=== PATIENT | female | born 1965 | race Caucasian/White ===

== ENCOUNTER 2019-08-29 16:32 | Inpatient (IN) ==
[2019-08-29 18:19] LABS: Basophils % 0.4 % (0.0-0.8); Eosinophils # 0.1 10*3/uL (0.0-0.87); Eosinophils % 1.7 % (0.00-10.9); Hematocrit 36.2 VOL% (35.7-47.0); Hemoglobin 11.9 GM/DL (12.0-16.0); Immature Granulocytes Absolute 0.07 #; Lymphocytes # 1.4 10*3/uL (1.4-4.0); Lymphocytes % 19.2 % (21.3-54.2); Mean Corpuscular HGB Conc 32.9 GM/DL (32-36); Mean Corpuscular Volume 87.7 FL (87-102); Mean Platelet Volume 9.1 FL (9.6-12.0); Monocytes % 8.6 % (1.7-12.7); Neutrophils % 69.1 % (38.7-73.9); Red Blood Count 4.13 MC/CUMM (3.8-5.5); Red Cell Distribution Width 15.1 % (9.3-17.3); White Blood Count 7.2 T/CUMM (4-12)
[2019-08-29 18:22] LABS: Platelet Count 65 T/CUMM (130-400)
[2019-08-29] MEDS ORDERED: ALBUTEROL 2.5 MG/3 ML NEB RESP TX STA (18:22)
[2019-08-29 18:28] LABS: INR 1.3
[2019-08-29 18:40] LABS: Albumin 2.8 G/DL (3.4-5.0); Bilirubin,Total 1.8 MG/DL (0.2-1.0); Calcium 8.3 MG/DL (8.5-10.1); Osmolality,Calculated 288.6 MOS/KG (273-304)
[2019-08-29] MEDS ORDERED: methylPREDNISolone SOD SUC 40 MG/1 ML VIAL IV STA (18:44)
[2019-08-29 19:16] LABS: Platelet Estimate Decreased
[2019-08-29] MEDS ORDERED: MAGNESIUM SULF RIDER 2 GM in PREMIX 1 EACH IV PRN (23:31)
[2019-08-29] MEDS ORDERED: GLUCAGON 1 MG VIAL IM PRN (23:31)
[2019-08-29] MEDS ORDERED: DEXTROSE 50% 25 GM/50 ML VIAL IV PRN (23:31)
[2019-08-29] MEDS ORDERED: diphenhydrAMINE CAP 25 MG CAPSULE PO PRN (23:31)
[2019-08-29] MEDS ORDERED: ONDANSETRON 4 MG/2 ML VIAL IV PRN (23:31)
[2019-08-29] MEDS ORDERED: MAGNESIUM SULF RIDER 4 GM in PREMIX 1 EACH IV PRN (23:31)
[2019-08-30] MEDS: MONTELUKAST 10 MG TABLET PO SCH ×2 (00:05→20:54)
[2019-08-30] MEDS: POTASSIUM CHLORIDE 20 MEQ TABLET PO PRN ×4 (00:05→05:46)
[2019-08-30] MEDS: BUDESONIDE/FORMOTEROL 160-4.5 INHALER 6 GM INH SCH ×3 (00:05→20:59)
[2019-08-30] MEDS: GABAPENTIN 400 MG CAPSULE PO SCH ×2 (00:05→20:54)
[2019-08-30] MEDS: INSULIN GLARGINE 100 UNIT/ML SUBCUT SCH ×2 (00:23→20:51)
[2019-08-30] MEDS: ALBUTEROL/IPRATROPIUM 3 ML NEB RESP TX PRN (00:32)
[2019-08-30 05:39] LABS: Basophils % 0.2 % (0.0-0.8); Hematocrit 34.4 VOL% (35.7-47.0); Hemoglobin 11.3 GM/DL (12.0-16.0); Immature Granulocytes Absolute 0.04 #; Lymphocytes # 0.4 10*3/uL (1.4-4.0); Lymphocytes % 10.8 % (21.3-54.2); Mean Corpuscular HGB Conc 32.8 GM/DL (32-36); Mean Corpuscular Volume 87.5 FL (87-102); Mean Platelet Volume 9.6 FL (9.6-12.0); Monocytes % 3.4 % (1.7-12.7); Neutrophils % 84.6 % (38.7-73.9); Red Blood Count 3.93 MC/CUMM (3.8-5.5); Red Cell Distribution Width 14.9 % (9.3-17.3); White Blood Count 4.1 T/CUMM (4-12)
[2019-08-30 05:40] LABS: Platelet Count 44 T/CUMM (130-400)
[2019-08-30] MEDS ORDERED: LEVOTHYROXINE 175 MCG TABLET PO SCH (06:00)
[2019-08-30 06:06] LABS: Platelet Estimate Decreased
[2019-08-30 06:10] LABS: Albumin 2.3 G/DL (3.4-5.0); Bilirubin,Total 1.4 MG/DL (0.2-1.0); Osmolality,Calculated 288.3 MOS/KG (273-304); Thyroid Stimulating Hormone 0.022 uIU/ml (0.358-3.74); Total Protein 5.7 G/DL (6.4-8.3)
[2019-08-30 06:52] LABS: Hepatitis B Core IgM Quant 0.11 Index; Hepatitis B Surface Ag Quant < 0.10 Index; Hepatitis B Surface Ag Result Negative (Negative); Hepatitis C Virus Ab Quant 0.06 Index; Hepatitis C Virus Ab Result Negative (Negative)
[2019-08-30] MEDS ORDERED: INSULIN REGULAR 100 UNIT/ML SUBCUT SCH (07:30)
[2019-08-30] MEDS ORDERED: FUROSEMIDE 40 MG TABLET PO SCH (08:00)
[2019-08-30] MEDS ORDERED: PANTOPRAZOLE 40 MG TABLET PO SCH (09:00)
[2019-08-30] MEDS: INSULIN LISPRO 100 UNIT/ML SUBCUT SCH ×8 (09:32→20:51)
[2019-08-30] MEDS: MULTIVITAMIN (CENTRUM) TABLET PO SCH (10:09)
[2019-08-30] MEDS: METOPROLOL SUCCINATE XL 25 MG TABLET PO SCH (10:09)
[2019-08-30] MEDS: POTASSIUM CHLORIDE 20 MEQ TABLET PO SCH (10:09)
[2019-08-30] MEDS ORDERED: RANITIDINE 150 MG TABLET PO PRN (10:21)
[2019-08-30] MEDS: SPIRONOLACTONE 25 MG TABLET PO SCH (12:20)
[2019-08-30] MEDS: MULTIVITAMIN (BEROCCA) TABLET PO SCH (12:20)
[2019-08-30] MEDS: ceFAZolin 1,000 MG in SYRINGE 1 EACH IV SCH ×2 (12:21→20:54)
[2019-08-30] MEDS ORDERED: metOLazone 5 MG TABLET PO SCH (13:00)
[2019-08-30] MEDS ORDERED: FUROSEMIDE 40 MG/4 ML VIAL IV SCH (16:00)
[2019-08-30] MEDS: FUROSEMIDE 40 MG/4 ML VIAL IV SCH (16:16)
[2019-08-30] MEDS: POLYETHYLENE GLYCOL POWDER 17 GM PACK PO SCH (20:54)
[2019-08-30] MEDS: DOCUSATE SODIUM 100 MG CAPSULE PO SCH (20:54)
[2019-08-31] MEDS: ceFAZolin 1,000 MG in SYRINGE 1 EACH IV SCH ×3 (06:00→21:06)
[2019-08-31 06:12] LABS: Basophils % 0.2 % (0.0-0.8); Eosinophils # 0.1 10*3/uL (0.0-0.87); Eosinophils % 1.2 % (0.00-10.9); Hematocrit 30.5 VOL% (35.7-47.0); Hemoglobin 10.1 GM/DL (12.0-16.0); Immature Granulocytes % 0.6 %; Immature Granulocytes Absolute 0.03 #; Lymphocytes % 20.2 % (21.3-54.2); Mean Corpuscular HGB Conc 33.1 GM/DL (32-36); Mean Corpuscular Volume 87.1 FL (87-102); Mean Platelet Volume 9.5 FL (9.6-12.0); Monocytes % 7.4 % (1.7-12.7); Neutrophils % 70.4 % (38.7-73.9); Platelet Count 65 T/CUMM (130-400); Red Cell Distribution Width 15.2 % (9.3-17.3)
[2019-08-31 06:28] LABS: Eosinophils 2 % (0-10); Hypochromasia 1+; Lymphocytes 15 % (20-55); Ovalocytes Slight; Platelet Estimate Decreased; Segmented Neutrophils 76 % (50-85); Total Cells Counted 100
[2019-08-31 06:38] LABS: Albumin 2.4 G/DL (3.4-5.0); Bilirubin,Total 1.1 MG/DL (0.2-1.0); Calcium 8.4 MG/DL (8.5-10.1); Folate 13.5 NG/ML (5.4-24.0); Osmolality,Calculated 290.6 MOS/KG (273-304); Total Protein 5.4 G/DL (6.4-8.3); Vitamin B12 889 PG/ML (211-911)
[2019-08-31 06:40] LABS: Ferritin 135.7 ng/ml (8-252)
[2019-08-31 08:08] LABS: Risk Ratio 2.67
[2019-08-31 08:15] LABS: Sedimentation Rate-Westergren 17 MM/HR (0-30)
[2019-08-31] MEDS: INSULIN LISPRO 100 UNIT/ML SUBCUT SCH ×7 (09:54→21:10)
[2019-08-31 10:02] LABS: Hemoglobin A1 (Alkaline) 97.3 % (96.5-98.5); Hemoglobin A2 (Alkaline) 2.7 % (1.5-3.5)
[2019-08-31] MEDS: FUROSEMIDE 40 MG/4 ML VIAL IV SCH ×2 (10:02→16:38)
[2019-08-31] MEDS: LEVOTHYROXINE 150 MCG TABLET PO SCH (10:02)
[2019-08-31] MEDS: BUDESONIDE/FORMOTEROL 160-4.5 INHALER 6 GM INH SCH ×2 (10:07→21:57)
[2019-08-31] MEDS: SPIRONOLACTONE 25 MG TABLET PO SCH (10:39)
[2019-08-31] MEDS: MULTIVITAMIN (BEROCCA) TABLET PO SCH (10:39)
[2019-08-31] MEDS: CHOLECALCIFEROL 1,000 UNIT TABLET PO SCH (10:40)
[2019-08-31] MEDS: METOPROLOL SUCCINATE XL 25 MG TABLET PO SCH (10:40)
[2019-08-31] MEDS: MULTIVITAMIN (CENTRUM) TABLET PO SCH (10:40)
[2019-08-31] MEDS: DOCUSATE SODIUM 100 MG CAPSULE PO SCH ×2 (10:41→21:08)
[2019-08-31] MEDS: POTASSIUM CHLORIDE 20 MEQ TABLET PO SCH (10:41)
[2019-08-31] MEDS: POLYETHYLENE GLYCOL POWDER 17 GM PACK PO SCH ×2 (10:42→21:10)
[2019-08-31] MEDS ORDERED: POTASSIUM CHLORIDE 20 MEQ TABLET PO ONE (11:00)
[2019-08-31] MEDS: BACITRACIN OINT 0.9 GM PACK TOP SCH (13:55)
[2019-08-31] MEDS: POTASSIUM CHLORIDE 20 MEQ TABLET PO PRN ×3 (18:21→23:36)
[2019-08-31] MEDS: ALBUTEROL/IPRATROPIUM 3 ML NEB RESP TX PRN (18:31)
[2019-08-31] MEDS: GABAPENTIN 400 MG CAPSULE PO SCH (21:08)
[2019-08-31] MEDS: SPIRONOLACTONE 50 MG TABLET PO SCH (21:08)
[2019-08-31] MEDS: MONTELUKAST 10 MG TABLET PO SCH (21:08)
[2019-08-31] MEDS: INSULIN GLARGINE 100 UNIT/ML SUBCUT SCH (21:09)
[2019-09-01] MEDS: ceFAZolin 1,000 MG in SYRINGE 1 EACH IV SCH ×2 (05:05→12:58)
[2019-09-01 05:58] LABS: Albumin 2.5 G/DL (3.4-5.0); Bilirubin,Total 1.1 MG/DL (0.2-1.0); Calcium 8.4 MG/DL (8.5-10.1); Osmolality,Calculated 286.8 MOS/KG (273-304); Total Protein 5.5 G/DL (6.4-8.3)
[2019-09-01] MEDS: LEVOTHYROXINE 150 MCG TABLET PO SCH (06:00)
[2019-09-01] MEDS: INSULIN LISPRO 100 UNIT/ML SUBCUT SCH ×4 (08:36→12:56)
[2019-09-01] MEDS ORDERED: GLUCOSAM CHON MSM1 C MANG BOSW PO SCH (09:00)
[2019-09-01] MEDS ORDERED: CHOLECALCIFEROL 1,000 UNIT TABLET PO SCH (09:00)
[2019-09-01] MEDS ORDERED: ASCORBIC ACID 500 MG TABLET PO SCH (09:00)
[2019-09-01] MEDS: DOCUSATE SODIUM 100 MG CAPSULE PO SCH (09:27)
[2019-09-01] MEDS: CHOLECALCIFEROL 1,000 UNIT TABLET PO SCH (09:27)
[2019-09-01] MEDS: MULTIVITAMIN (BEROCCA) TABLET PO SCH (09:27)
[2019-09-01] MEDS: MULTIVITAMIN (CENTRUM) TABLET PO SCH (09:27)
[2019-09-01] MEDS: METOPROLOL SUCCINATE XL 25 MG TABLET PO SCH (09:27)
[2019-09-01] MEDS: SPIRONOLACTONE 50 MG TABLET PO SCH (09:27)
[2019-09-01] MEDS: POLYETHYLENE GLYCOL POWDER 17 GM PACK PO SCH (09:28)
[2019-09-01] MEDS: BACITRACIN OINT 0.9 GM PACK TOP SCH (09:29)
[2019-09-01] MEDS: FUROSEMIDE 40 MG/4 ML VIAL IV SCH (09:29)
[2019-09-01] MEDS: BUDESONIDE/FORMOTEROL 160-4.5 INHALER 6 GM INH SCH (09:33)
[2019-09-01 11:10] VITALS: BP 127/58
[2019-09-01 13:43] LABS: Smooth Muscle Antibody Negative (Negative)
[2019-09-02 07:41] LABS: Mitochondrial Antibody (M2) <0.1 U
== END 2019-09-01 13:02 | disposition home or self-care (01) | DRG 433 ==
LOC: N.ED 16:32 → N.EDINP 16:32 → N.2E 22:24 → SUATTDRO 08-30 11:03
PROVIDERS: ADMIT Hospitalist

== ENCOUNTER 2020-04-17 10:00 | Observation (INO) ==
[2020-04-17 10:59] LABS: Basophils % 0.8 % (0.0-0.8); Eosinophils # 0.1 10*3/uL (0.0-0.87); Eosinophils % 2.5 % (0.00-10.9); Hematocrit 42.5 VOL% (35.7-47.0); Hemoglobin 14.2 GM/DL (12.0-16.0); Immature Granulocytes % 0.8 %; Immature Granulocytes Absolute 0.03 #; Lymphocytes % 25.4 % (21.3-54.2); Mean Corpuscular HGB Conc 33.4 GM/DL (32-36); Mean Corpuscular Volume 85.5 FL (87-102); Mean Platelet Volume 9.4 FL (9.6-12.0); Monocytes % 9.3 % (1.7-12.7); Neutrophils % 61.2 % (38.7-73.9); Red Blood Count 4.97 MC/CUMM (3.8-5.5); Red Cell Distribution Width 16.3 % (9.3-17.3)
[2020-04-17 11:00] LABS: Platelet Count 78 T/CUMM (130-400)
[2020-04-17 11:14] LABS: Apearance,Urine CLEAR (Clear); Bilirubin,Urine Negative (Negative); Blood, Urine Negative (Negative); Glucose,Urine (UA) >=500 mg/dL (Negative); Hyaline Casts,Urine 4 /LPF (0-3); Ketones,Urine Negative (Negative); Nitrite,Urine Negative (Negative); Protein,Urine Negative; RBC,Urine 1 /HPF (0-4); Urine Color Yellow (Yellow); Urine Specific Gravity 1.022 (1.001-1.035); Urine Urobilinogen < 2.0 EU/DL (0.2-1.0)
[2020-04-17 11:18] LABS: Albumin 3.4 G/DL (3.4-5.0); Bilirubin,Total 2.8 MG/DL (0.2-1.0); Calcium 9.1 MG/DL (8.5-10.1); Osmolality,Calculated 272.8 MOS/KG (273-304); Total Protein 8.4 G/DL (6.4-8.3)
[2020-04-17 11:19] LABS: Barbiturates Screen,Urine Negative (Negative); Benzodiazepines Screen,Urine Negative (Negative); Cannabinoid Screen,Urine Negative (Negative); Opiate Screen,Urine Positive (Negative); Phencyclidine Screen,Urine Negative (Negative)
[2020-04-17] MEDS ORDERED: NALOXONE 0.4 MG/ML VIAL IV STA (11:22)
[2020-04-17 11:23] LABS: Hypochromasia 1+
[2020-04-17 11:24] LABS: Microcytosis 1+; Ovalocytes Slight; Platelet Estimate Decreased
[2020-04-17] MEDS ORDERED: LACTULOSE 20 GM/30 ML UDCUP PO STA (11:24)
[2020-04-17] MEDS ORDERED: LACTULOSE 320 GM/480 ML BOTTLE RECTAL ONE (11:56)
[2020-04-17] MEDS ORDERED: ALBUTEROL 2.5 MG/3 ML NEB RESP TX PRN (11:59)
[2020-04-17] MEDS ORDERED: ONDANSETRON 4 MG/2 ML VIAL IV PRN (12:49)
[2020-04-17] MEDS ORDERED: GLUCAGON 1 MG VIAL IM PRN (12:49)
[2020-04-17] MEDS ORDERED: DEXTROSE 10% 250 ML BAG IV PRN (12:49)
[2020-04-17] MEDS ORDERED: hydrALAZINE 20 MG/1 ML VIAL IV PRN (12:49)
[2020-04-17] MEDS: LACTULOSE 20 GM/30 ML UDCUP PO SCH ×2 (16:15→20:42)
[2020-04-17] MEDS: ALBUTEROL/IPRATROPIUM 3 ML NEB RESP TX SCH ×2 (16:52→20:38)
[2020-04-17] MEDS: SPIRONOLACTONE 50 MG TABLET PO SCH (20:42)
[2020-04-17] MEDS: MONTELUKAST 10 MG TABLET PO SCH (20:42)
[2020-04-17] MEDS: GABAPENTIN 400 MG CAPSULE PO SCH (20:42)
[2020-04-17] MEDS: BUDESONIDE/FORMOTEROL 160-4.5 INHALER 6 GM INH SCH (20:43)
[2020-04-17] MEDS: FUROSEMIDE 40 MG TABLET PO SCH (20:43)
[2020-04-18] MEDS: ALBUTEROL/IPRATROPIUM 3 ML NEB RESP TX SCH ×4 (01:45→19:42)
[2020-04-18] MEDS ORDERED: ACETAMINOPHEN 325 MG TABLET PO PRN (03:41)
[2020-04-18 05:29] LABS: Eosinophils # 0.1 10*3/uL (0.0-0.87); Hemoglobin 11.9 GM/DL (12.0-16.0); Immature Granulocytes % 1.3 %; Immature Granulocytes Absolute 0.05 #; Lymphocytes % 25.1 % (21.3-54.2); Mean Corpuscular HGB Conc 33.1 GM/DL (32-36); Mean Corpuscular Volume 85.3 FL (87-102); Mean Platelet Volume 9.7 FL (9.6-12.0); Monocytes % 13.6 % (1.7-12.7); Platelet Count 64 T/CUMM (130-400); Red Blood Count 4.22 MC/CUMM (3.8-5.5); Red Cell Distribution Width 16.3 % (9.3-17.3)
[2020-04-18 05:49] LABS: Albumin 2.8 G/DL (3.4-5.0); Bilirubin,Total 2.9 MG/DL (0.2-1.0); Calcium 8.1 MG/DL (8.5-10.1); Osmolality,Calculated 269.8 MOS/KG (273-304); Risk Ratio 2.96; Thyroid Stimulating Hormone 1.65 uIU/ml (0.358-3.74); VLDL CHOLESTEROL 21.8 MG/DL
[2020-04-18] MEDS: LEVOTHYROXINE 150 MCG TABLET PO SCH (06:06)
[2020-04-18 06:23] LABS: Anisocytosis Slight; Platelet Estimate Decreased
[2020-04-18] MEDS: LACTULOSE 20 GM/30 ML UDCUP PO SCH ×3 (09:43→20:46)
[2020-04-18] MEDS: PANTOPRAZOLE 40 MG TABLET PO SCH (09:44)
[2020-04-18] MEDS: SPIRONOLACTONE 50 MG TABLET PO SCH ×2 (09:44→20:46)
[2020-04-18] MEDS: GLUCOSAMINE 500 MG TABLET PO SCH (09:44)
[2020-04-18] MEDS: POTASSIUM CHLORIDE 20 MEQ TABLET PO SCH (09:44)
[2020-04-18] MEDS: FUROSEMIDE 40 MG TABLET PO SCH ×2 (09:45→20:46)
[2020-04-18] MEDS: METOPROLOL SUCCINATE XL 25 MG TABLET PO SCH (09:45)
[2020-04-18] MEDS: BUDESONIDE/FORMOTEROL 160-4.5 INHALER 6 GM INH SCH ×2 (09:47→20:51)
[2020-04-18] MEDS: RIFAXIMIN 550 MG TABLET PO SCH ×2 (11:57→20:46)
[2020-04-18] MEDS ORDERED: GLUCAGON 1 MG VIAL IM PRN (17:21)
[2020-04-18] MEDS ORDERED: DEXTROSE 50% 25 GM/50 ML VIAL IV PRN (17:21)
[2020-04-18] MEDS: GABAPENTIN 400 MG CAPSULE PO SCH (20:46)
[2020-04-18] MEDS: MONTELUKAST 10 MG TABLET PO SCH (20:46)
[2020-04-18] MEDS: INSULIN REGULAR 100 UNIT/ML SUBCUT SCH (20:48)
[2020-04-19] MEDS: ALBUTEROL/IPRATROPIUM 3 ML NEB RESP TX SCH ×2 (00:33→07:22)
[2020-04-19] MEDS: LEVOTHYROXINE 150 MCG TABLET PO SCH (06:03)
[2020-04-19 06:37] LABS: Basophils % 0.9 % (0.0-0.8); Eosinophils # 0.1 10*3/uL (0.0-0.87); Eosinophils % 3.2 % (0.00-10.9); Hematocrit 37.9 VOL% (35.7-47.0); Hemoglobin 12.5 GM/DL (12.0-16.0); Immature Granulocytes % 0.9 %; Immature Granulocytes Absolute 0.04 #; Lymphocytes % 23.2 % (21.3-54.2); Mean Corpuscular Volume 86.7 FL (87-102); Mean Platelet Volume 9.5 FL (9.6-12.0); Monocytes % 14.1 % (1.7-12.7); Neutrophils % 57.7 % (38.7-73.9); Platelet Count 65 T/CUMM (130-400); Red Blood Count 4.37 MC/CUMM (3.8-5.5); Red Cell Distribution Width 16.2 % (9.3-17.3); White Blood Count 4.4 T/CUMM (4-12)
[2020-04-19 06:53] LABS: Albumin 2.7 G/DL (3.4-5.0); Bilirubin,Total 2.2 MG/DL (0.2-1.0); Calcium 8.5 MG/DL (8.5-10.1); Osmolality,Calculated 265.1 MOS/KG (273-304); Total Protein 7.1 G/DL (6.4-8.3)
[2020-04-19] MEDS ORDERED: LACTULOSE 20 GM/30 ML UDCUP PO SCH (07:06)
[2020-04-19] MEDS: PANTOPRAZOLE 40 MG TABLET PO SCH (09:43)
[2020-04-19] MEDS: SPIRONOLACTONE 50 MG TABLET PO SCH (09:43)
[2020-04-19] MEDS: FUROSEMIDE 40 MG TABLET PO SCH (09:43)
[2020-04-19] MEDS: POTASSIUM CHLORIDE 20 MEQ TABLET PO SCH (09:43)
[2020-04-19] MEDS: RIFAXIMIN 550 MG TABLET PO SCH (09:43)
[2020-04-19] MEDS: GLUCOSAMINE 500 MG TABLET PO SCH (09:43)
[2020-04-19] MEDS: METOPROLOL SUCCINATE XL 25 MG TABLET PO SCH (09:43)
[2020-04-19] MEDS: INSULIN REGULAR 100 UNIT/ML SUBCUT SCH ×2 (09:44→11:52)
[2020-04-19] MEDS: BUDESONIDE/FORMOTEROL 160-4.5 INHALER 6 GM INH SCH (09:47)
[2020-04-19 12:21] VITALS: BP 102/43
== END 2020-04-19 12:16 | disposition home or self-care (01) ==
LOC: EDUNIT# → EDBD → N.ED 10:00 → N.EDINP 10:00 → N.3E 15:36
PROVIDERS: ADMIT Internal Medicine; ATTEND Internal Medicine

== ENCOUNTER 2020-07-21 20:08 | Observation (INO) ==
[2020-07-21 21:07] LABS: Basophils % 0.8 % (0.0-0.8); Eosinophils # 0.1 10*3/uL (0.0-0.87); Eosinophils % 2.4 % (0.00-10.9); Hematocrit 38.3 VOL% (35.7-47.0); Hemoglobin 12.9 GM/DL (12.0-16.0); Immature Granulocytes Absolute 0.05 #; Lymphocytes # 0.8 10*3/uL (1.4-4.0); Lymphocytes % 15.3 % (21.3-54.2); Mean Corpuscular HGB Conc 33.7 GM/DL (32-36); Mean Corpuscular Volume 83.6 FL (87-102); Mean Platelet Volume 8.9 FL (9.6-12.0); Monocytes % 10.5 % (1.7-12.7); Platelet Count 87 T/CUMM (130-400); Red Blood Count 4.58 MC/CUMM (3.8-5.5); Red Cell Distribution Width 15.2 % (9.3-17.3)
[2020-07-21 21:09] LABS: Apearance,Urine CLEAR (Clear); Bilirubin,Urine Negative (Negative); Blood, Urine Negative (Negative); Glucose,Urine (UA) Negative (Negative); Hyaline Casts,Urine 1 /LPF (0-3); Ketones,Urine Negative (Negative); Mucus,Urine Occasional /LPF (Occasional); Nitrite,Urine Negative (Negative); Protein,Urine Negative; Urine Color Yellow (Yellow); Urine Specific Gravity 1.012 (1.001-1.035); Urine Urobilinogen < 2.0 EU/DL (0.2-1.0); WBC,Urine 1 /HPF (0-6)
[2020-07-21 21:20] LABS: INR 1.2; PT Patient Result 12.9 SECS (9.8-11.9); Partial Thromboplastin Time 30.5 SECS (23.9-33.8)
[2020-07-21 21:30] LABS: Bilirubin,Total 2.5 MG/DL (0.2-1.0); Calcium 8.7 MG/DL (8.5-10.1); Osmolality,Calculated 267.1 MOS/KG (273-304); Total Protein 7.8 G/DL (6.4-8.3)
[2020-07-21 21:31] LABS: Barbiturates Screen,Urine Negative (Negative); Benzodiazepines Screen,Urine Negative (Negative); Cannabinoid Screen,Urine Negative (Negative); Opiate Screen,Urine Positive (Negative); Phencyclidine Screen,Urine Negative (Negative)
[2020-07-21] MEDS ORDERED: SODIUM CHLORIDE 0.9% 1,000 ML IV STA (21:48)
[2020-07-21 22:02] LABS: Hypochromasia 1+; Microcytosis 1+
[2020-07-21 22:03] LABS: Platelet Estimate Adequate; Polychromasia 1+
[2020-07-21] MEDS ORDERED: DEXTROSE 50% 25 GM/50 ML VIAL IV PRN (22:56)
[2020-07-21] MEDS ORDERED: GLUCAGON 1 MG VIAL IM PRN (22:56)
[2020-07-21] MEDS ORDERED: ALBUTEROL 0.63 MG/3 ML NEB RESP TX PRN (23:27)
[2020-07-22] MEDS ORDERED: LACTULOSE 320 GM/480 ML BOTTLE RECTAL ONE
[2020-07-22] MEDS ORDERED: LACTULOSE 20 GM/30 ML UDCUP PO SCH (01:12)
[2020-07-22 01:43] LABS: Potassium,Urine Random 36 MMOL/L; Sodium, Urine Random < 5.0 MMOL/L
[2020-07-22 04:04] LABS: Basophils # 0.1 10*3/uL (0.0-0.2); Basophils % 1.2 % (0.0-0.8); Eosinophils # 0.2 10*3/uL (0.0-0.87); Hemoglobin 12.7 GM/DL (12.0-16.0); Immature Granulocytes % 0.8 %; Immature Granulocytes Absolute 0.05 #; Lymphocytes # 1.3 10*3/uL (1.4-4.0); Lymphocytes % 21.1 % (21.3-54.2); Mean Corpuscular HGB Conc 33.4 GM/DL (32-36); Mean Corpuscular Volume 84.6 FL (87-102); Mean Platelet Volume 9.3 FL (9.6-12.0); Monocytes % 12.1 % (1.7-12.7); Neutrophils % 61.8 % (38.7-73.9); Platelet Count 86 T/CUMM (130-400); Red Blood Count 4.49 MC/CUMM (3.8-5.5); Red Cell Distribution Width 15.3 % (9.3-17.3)
[2020-07-22 04:41] LABS: Bilirubin,Total 2.5 MG/DL (0.2-1.0); Osmolality,Calculated 272.5 MOS/KG (273-304); Total Protein 7.5 G/DL (6.4-8.3)
[2020-07-22 04:47] LABS: Anisocytosis 1+; Eosinophils 2 % (0-10); Lymphocytes 20 % (20-55); Segmented Neutrophils 69 % (50-85); Total Cells Counted 100
[2020-07-22 04:48] LABS: Hypochromasia 1+; Platelet Estimate Decreased
[2020-07-22] MEDS ORDERED: LEVOTHYROXINE 150 MCG TABLET PO SCH (06:30)
[2020-07-22] MEDS ORDERED: PANTOPRAZOLE 40 MG TABLET PO SCH (09:00)
[2020-07-22] MEDS ORDERED: BUDESONIDE/FORMOTEROL 160-4.5 INHALER 6 GM INH SCH (09:00)
[2020-07-22] MEDS ORDERED: RIFAXIMIN 550 MG TABLET PO SCH (09:00)
[2020-07-22] MEDS: LACTULOSE 20 GM/30 ML UDCUP PO SCH ×3 (09:53→14:42)
[2020-07-22 16:54] VITALS: BP 120/80
== END 2020-07-22 16:35 | disposition home or self-care (01) ==
LOC: EDBD → EDUNIT# → N.ED 20:08 → N.EDINP 20:08 → N.5E 23:41
PROVIDERS: ADMIT Internal Medicine; ATTEND Internal Medicine

== ENCOUNTER 2020-08-04 15:18 | Inpatient (IN) ==
[2020-08-04] MEDS ORDERED: DEXTROSE 50% 25 GM/50 ML VIAL IV PRN ×2 (18:57→19:09)
[2020-08-04] MEDS ORDERED: GLUCAGON 1 MG VIAL IM PRN ×2 (18:57→19:09)
[2020-08-04] MEDS ORDERED: DOCUSATE SODIUM 100 MG CAPSULE PO PRN (19:02)
[2020-08-04] MEDS ORDERED: ACETAMINOPHEN 325 MG TABLET PO PRN (19:02)
[2020-08-04] MEDS ORDERED: PROMETHAZINE 25 MG TABLET PO PRN (19:05)
[2020-08-04 20:01] LABS: Basophils # 0.1 10*3/uL (0.0-0.2); Eosinophils # 0.3 10*3/uL (0.0-0.87); Eosinophils % 5.7 % (0.00-10.9); Hematocrit 33.3 VOL% (35.7-47.0); Hemoglobin 11.1 GM/DL (12.0-16.0); Immature Granulocytes Absolute 0.05 #; Lymphocytes # 1.2 10*3/uL (1.4-4.0); Lymphocytes % 24.8 % (21.3-54.2); Mean Corpuscular HGB Conc 33.3 GM/DL (32-36); Mean Corpuscular Volume 85.4 FL (87-102); Mean Platelet Volume 9.1 FL (9.6-12.0); Monocytes % 11.5 % (1.7-12.7); Platelet Count 80 T/CUMM (130-400); Red Cell Distribution Width 16.8 % (9.3-17.3); White Blood Count 4.9 T/CUMM (4-12)
[2020-08-04] MEDS: ALBUTEROL/IPRATROPIUM 3 ML NEB RESP TX SCH ×2 (20:02→22:58)
[2020-08-04 21:29] LABS: Platelet Estimate Decreased
[2020-08-04] MEDS: cefTRIAXone 2,000 MG in SYRINGE 1 EACH IV SCH (21:35)
[2020-08-04] MEDS: ENOXAPARIN 40 MG/0.4 ML SYRINGE SUBCUT SCH (21:36)
[2020-08-04] MEDS: LACTULOSE 20 GM/30 ML UDCUP PO SCH (21:40)
[2020-08-04] MEDS: INSULIN REGULAR 100 UNIT/ML SUBCUT SCH (21:41)
[2020-08-04] MEDS: GABAPENTIN 400 MG CAPSULE PO SCH (21:42)
[2020-08-04] MEDS: FUROSEMIDE 40 MG/4 ML VIAL IV SCH (21:42)
[2020-08-04] MEDS: SPIRONOLACTONE 50 MG TABLET PO SCH (21:42)
[2020-08-04] MEDS: BENZONATATE 100 MG CAPSULE PO SCH (21:43)
[2020-08-04] MEDS: CYCLOBENZAPRINE 10 MG TABLET PO SCH (21:43)
[2020-08-04] MEDS: RIFAXIMIN 550 MG TABLET PO SCH (21:44)
[2020-08-04] MEDS: MONTELUKAST 10 MG TABLET PO SCH (21:44)
[2020-08-04] MEDS: AZITHROMYCIN INJ 500 MG in SODIUM CHLORIDE 0.9% 250 ML IV SCH (21:54)
[2020-08-04 22:57] LABS: Alanine Aminotransferase 52 U/L (13-56); Albumin 2.3 G/DL (3.4-5.0); Alkaline Phosphatase 162 U/L (45-117); Aspartate Amino Transferase 47 U/L (0-37); Blood Urea Nitrogen 12 MG/DL (7-18); Calcium 7.8 MG/DL (8.5-10.1); Estimated Glom Filtration Rate 77 ML/MIN; Glucose 190 MG/DL (74-106); Osmolality,Calculated 268.5 MOS/KG (273-304); Total Protein 5.8 G/DL (6.4-8.3)
[2020-08-05 00:39] LABS: Basophils # 0.1 10*3/uL (0.0-0.2); Basophils % 1.1 % (0.0-0.8); Eosinophils # 0.3 10*3/uL (0.0-0.87); Eosinophils % 5.2 % (0.00-10.9); Hematocrit 32.1 VOL% (35.7-47.0); Hemoglobin 10.8 GM/DL (12.0-16.0); Immature Granulocytes % 1.1 %; Immature Granulocytes Absolute 0.06 #; Lymphocytes # 1.4 10*3/uL (1.4-4.0); Lymphocytes % 24.9 % (21.3-54.2); Mean Corpuscular HGB Conc 33.6 GM/DL (32-36); Mean Corpuscular Volume 84.7 FL (87-102); Mean Platelet Volume 8.8 FL (9.6-12.0); Monocytes % 13.5 % (1.7-12.7); Neutrophils % 54.2 % (38.7-73.9); Platelet Count 75 T/CUMM (130-400); Red Blood Count 3.79 MC/CUMM (3.8-5.5); Red Cell Distribution Width 16.7 % (9.3-17.3); White Blood Count 5.6 T/CUMM (4-12)
[2020-08-05 00:50] LABS: INR 1.4; PT Patient Result 14.6 SECS (9.8-11.9)
[2020-08-05 01:05] LABS: Calcium 8.2 MG/DL (8.5-10.1); Osmolality,Calculated 268.5 MOS/KG (273-304); Thyroid Stimulating Hormone 1.53 uIU/ml (0.358-3.74)
[2020-08-05 02:37] LABS: Band Neutrophils 1 % (0-10); Eosinophils 8 % (0-10); Lymphocytes 22 % (20-55); Segmented Neutrophils 57 % (50-85); Total Cells Counted 100
[2020-08-05 02:38] LABS: Anisocytosis 1+; Ovalocytes 1+; Platelet Estimate Decreased
[2020-08-05] MEDS: ALBUTEROL/IPRATROPIUM 3 ML NEB RESP TX SCH ×5 (02:48→19:40)
[2020-08-05] MEDS: LEVOTHYROXINE 150 MCG TABLET PO SCH (05:33)
[2020-08-05] MEDS: INSULIN REGULAR 100 UNIT/ML SUBCUT SCH ×5 (07:30→21:40)
[2020-08-05] MEDS ORDERED: METOPROLOL SUCCINATE XL 25 MG TABLET PO SCH (09:00)
[2020-08-05] MEDS: FUROSEMIDE 40 MG/4 ML VIAL IV SCH (09:16)
[2020-08-05] MEDS ORDERED: FUROSEMIDE 40 MG/4 ML VIAL IV SCH (09:16)
[2020-08-05] MEDS: INSULIN ASPART PROTAMINE/ASPART 70/30 100 UNIT/ML SUBCUT SCH ×2 (09:37→16:58)
[2020-08-05] MEDS: RIFAXIMIN 550 MG TABLET PO SCH ×2 (09:40→21:33)
[2020-08-05] MEDS: CYCLOBENZAPRINE 10 MG TABLET PO SCH ×3 (09:40→21:33)
[2020-08-05] MEDS: PANTOPRAZOLE 40 MG TABLET PO SCH (09:40)
[2020-08-05] MEDS: BENZONATATE 100 MG CAPSULE PO SCH ×3 (09:40→21:35)
[2020-08-05] MEDS: FERROUS SULFATE 325 MG TABLET PO SCH (09:41)
[2020-08-05] MEDS: POTASSIUM CHLORIDE 20 MEQ TABLET PO SCH (09:41)
[2020-08-05] MEDS: LACTULOSE 20 GM/30 ML UDCUP PO SCH ×3 (09:47→21:32)
[2020-08-05] MEDS: SPIRONOLACTONE 50 MG TABLET PO SCH ×2 (11:02→21:34)
[2020-08-05] MEDS: metOLazone 5 MG TABLET PO SCH (17:02)
[2020-08-05] MEDS: BUMETANIDE 1 MG/4 ML VIAL IV SCH (17:07)
[2020-08-05] MEDS: cefTRIAXone 2,000 MG in SYRINGE 1 EACH IV SCH (21:30)
[2020-08-05] MEDS: ENOXAPARIN 40 MG/0.4 ML SYRINGE SUBCUT SCH (21:32)
[2020-08-05] MEDS: GABAPENTIN 400 MG CAPSULE PO SCH (21:34)
[2020-08-05] MEDS: MONTELUKAST 10 MG TABLET PO SCH (21:34)
[2020-08-05] MEDS: AZITHROMYCIN INJ 500 MG in SODIUM CHLORIDE 0.9% 250 ML IV SCH (21:39)
[2020-08-06] MEDS: ALBUTEROL/IPRATROPIUM 3 ML NEB RESP TX SCH ×6 (00:14→20:39)
[2020-08-06 05:51] LABS: Basophils # 0.1 10*3/uL (0.0-0.2); Eosinophils # 0.3 10*3/uL (0.0-0.87); Eosinophils % 4.6 % (0.00-10.9); Hematocrit 31.7 VOL% (35.7-47.0); Hemoglobin 10.8 GM/DL (12.0-16.0); Immature Granulocytes % 1.1 %; Immature Granulocytes Absolute 0.07 #; Lymphocytes # 1.5 10*3/uL (1.4-4.0); Lymphocytes % 24.1 % (21.3-54.2); Mean Corpuscular HGB Conc 34.1 GM/DL (32-36); Mean Platelet Volume 8.9 FL (9.6-12.0); Monocytes % 12.2 % (1.7-12.7); Platelet Count 79 T/CUMM (130-400); Red Blood Count 3.73 MC/CUMM (3.8-5.5); White Blood Count 6.1 T/CUMM (4-12)
[2020-08-06] MEDS: LEVOTHYROXINE 150 MCG TABLET PO SCH (06:00)
[2020-08-06 06:22] LABS: Calcium 8.1 MG/DL (8.5-10.1); Osmolality,Calculated 264.7 MOS/KG (273-304)
[2020-08-06 06:40] LABS: Hypochromasia 1+; Microcytosis Slight; Platelet Estimate Decreased
[2020-08-06] MEDS: INSULIN REGULAR 100 UNIT/ML SUBCUT SCH ×4 (08:40→22:53)
[2020-08-06] MEDS: BUMETANIDE 1 MG/4 ML VIAL IV SCH (09:35)
[2020-08-06] MEDS: LACTULOSE 20 GM/30 ML UDCUP PO SCH ×2 (09:35→22:08)
[2020-08-06] MEDS: INSULIN ASPART PROTAMINE/ASPART 70/30 100 UNIT/ML SUBCUT SCH ×2 (09:35→17:41)
[2020-08-06] MEDS: SPIRONOLACTONE 50 MG TABLET PO SCH ×2 (09:35→22:09)
[2020-08-06] MEDS: FERROUS SULFATE 325 MG TABLET PO SCH (09:35)
[2020-08-06] MEDS: METOPROLOL SUCCINATE XL 25 MG TABLET PO SCH (09:36)
[2020-08-06] MEDS: PANTOPRAZOLE 40 MG TABLET PO SCH (09:36)
[2020-08-06] MEDS: POTASSIUM CHLORIDE 20 MEQ TABLET PO SCH ×3 (09:36→22:09)
[2020-08-06] MEDS: RIFAXIMIN 550 MG TABLET PO SCH ×2 (09:36→22:08)
[2020-08-06] MEDS: CHOLECALCIFEROL 1,000 UNIT TABLET PO SCH (09:36)
[2020-08-06] MEDS: BENZONATATE 100 MG CAPSULE PO SCH ×3 (09:36→22:09)
[2020-08-06] MEDS: metOLazone 5 MG TABLET PO SCH (09:37)
[2020-08-06] MEDS: CYCLOBENZAPRINE 10 MG TABLET PO SCH ×2 (09:51→15:59)
[2020-08-06] MEDS: PIPERACILLIN/TAZOBACTAM 3,375 MG in SODIUM CHLORIDE 0.9% 100 ML IV SCH (12:35)
[2020-08-06] MEDS: GABAPENTIN 400 MG CAPSULE PO SCH (22:09)
[2020-08-06] MEDS: MONTELUKAST 10 MG TABLET PO SCH (22:09)
[2020-08-06] MEDS: CYCLOBENZAPRINE 10 MG TABLET PO PRN (22:10)
[2020-08-06] MEDS: ENOXAPARIN 40 MG/0.4 ML SYRINGE SUBCUT SCH (22:11)
[2020-08-06] MEDS: AZITHROMYCIN INJ 500 MG in SODIUM CHLORIDE 0.9% 250 ML IV SCH (22:15)
[2020-08-07] MEDS: ALBUTEROL/IPRATROPIUM 3 ML NEB RESP TX SCH ×7 (00:05→23:08)
[2020-08-07] MEDS: PIPERACILLIN/TAZOBACTAM 3,375 MG in SODIUM CHLORIDE 0.9% 100 ML IV SCH ×3 (00:30→16:31)
[2020-08-07 05:57] LABS: Basophils # 0.1 10*3/uL (0.0-0.2); Basophils % 0.8 % (0.0-0.8); Eosinophils # 0.3 10*3/uL (0.0-0.87); Eosinophils % 5.3 % (0.00-10.9); Hematocrit 34.1 VOL% (35.7-47.0); Hemoglobin 11.4 GM/DL (12.0-16.0); Immature Granulocytes % 0.6 %; Immature Granulocytes Absolute 0.04 #; Lymphocytes # 1.4 10*3/uL (1.4-4.0); Lymphocytes % 21.7 % (21.3-54.2); Mean Corpuscular HGB Conc 33.4 GM/DL (32-36); Mean Corpuscular Volume 86.3 FL (87-102); Mean Platelet Volume 8.5 FL (9.6-12.0); Monocytes % 13.7 % (1.7-12.7); Neutrophils % 57.9 % (38.7-73.9); Platelet Count 79 T/CUMM (130-400); Red Blood Count 3.95 MC/CUMM (3.8-5.5); Red Cell Distribution Width 17.1 % (9.3-17.3); White Blood Count 6.3 T/CUMM (4-12)
[2020-08-07 06:03] LABS: Calcium 8.3 MG/DL (8.5-10.1); Osmolality,Calculated 259.9 MOS/KG (273-304)
[2020-08-07] MEDS: LEVOTHYROXINE 150 MCG TABLET PO SCH (06:17)
[2020-08-07 06:22] LABS: Hypochromasia 1+; Microcytosis Slight; Platelet Estimate Decreased
[2020-08-07] MEDS: INSULIN REGULAR 100 UNIT/ML SUBCUT SCH ×4 (07:30→22:08)
[2020-08-07] MEDS: INSULIN ASPART PROTAMINE/ASPART 70/30 100 UNIT/ML SUBCUT SCH ×2 (08:43→16:31)
[2020-08-07] MEDS: CHOLECALCIFEROL 1,000 UNIT TABLET PO SCH (08:52)
[2020-08-07] MEDS: METOPROLOL SUCCINATE XL 25 MG TABLET PO SCH (08:52)
[2020-08-07] MEDS: metOLazone 5 MG TABLET PO SCH (08:52)
[2020-08-07] MEDS: RIFAXIMIN 550 MG TABLET PO SCH ×2 (08:52→22:09)
[2020-08-07] MEDS: SPIRONOLACTONE 50 MG TABLET PO SCH ×2 (08:53→22:09)
[2020-08-07] MEDS: PANTOPRAZOLE 40 MG TABLET PO SCH (08:53)
[2020-08-07] MEDS: BENZONATATE 100 MG CAPSULE PO SCH ×3 (08:53→22:09)
[2020-08-07] MEDS: FERROUS SULFATE 325 MG TABLET PO SCH (08:53)
[2020-08-07] MEDS: LACTULOSE 20 GM/30 ML UDCUP PO SCH ×2 (08:53→22:09)
[2020-08-07] MEDS: POTASSIUM CHLORIDE 20 MEQ TABLET PO SCH ×3 (08:53→22:09)
[2020-08-07] MEDS: BUMETANIDE 1 MG/4 ML VIAL IV SCH (09:06)
[2020-08-07] MEDS: CYCLOBENZAPRINE 10 MG TABLET PO PRN (22:09)
[2020-08-07] MEDS: MONTELUKAST 10 MG TABLET PO SCH (22:09)
[2020-08-07] MEDS: GABAPENTIN 400 MG CAPSULE PO SCH (22:09)
[2020-08-07] MEDS: AZITHROMYCIN INJ 500 MG in SODIUM CHLORIDE 0.9% 250 ML IV SCH (22:10)
[2020-08-08] MEDS: ENOXAPARIN 40 MG/0.4 ML SYRINGE SUBCUT SCH ×2 (00:52→20:39)
[2020-08-08] MEDS: PIPERACILLIN/TAZOBACTAM 3,375 MG in SODIUM CHLORIDE 0.9% 100 ML IV SCH ×3 (00:52→16:15)
[2020-08-08] MEDS: ALBUTEROL/IPRATROPIUM 3 ML NEB RESP TX SCH ×5 (03:05→19:02)
[2020-08-08] MEDS: LEVOTHYROXINE 150 MCG TABLET PO SCH (05:36)
[2020-08-08 07:44] LABS: Basophils # 0.1 10*3/uL (0.0-0.2); Basophils % 1.1 % (0.0-0.8); Eosinophils # 0.3 10*3/uL (0.0-0.87); Eosinophils % 4.1 % (0.00-10.9); Hematocrit 32.7 VOL% (35.7-47.0); Hemoglobin 10.9 GM/DL (12.0-16.0); Immature Granulocytes % 0.6 %; Immature Granulocytes Absolute 0.04 #; Lymphocytes # 1.5 10*3/uL (1.4-4.0); Lymphocytes % 23.3 % (21.3-54.2); Mean Corpuscular HGB Conc 33.3 GM/DL (32-36); Mean Corpuscular Volume 86.1 FL (87-102); Mean Platelet Volume 8.8 FL (9.6-12.0); Monocytes % 12.8 % (1.7-12.7); Neutrophils % 58.1 % (38.7-73.9); Platelet Count 89 T/CUMM (130-400); Red Cell Distribution Width 17.2 % (9.3-17.3); White Blood Count 6.4 T/CUMM (4-12)
[2020-08-08 07:51] LABS: Calcium 8.1 MG/DL (8.5-10.1); Osmolality,Calculated 260.1 MOS/KG (273-304)
[2020-08-08] MEDS: INSULIN REGULAR 100 UNIT/ML SUBCUT SCH ×4 (08:00→20:39)
[2020-08-08] MEDS: BUMETANIDE 1 MG/4 ML VIAL IV SCH (09:21)
[2020-08-08] MEDS: BENZONATATE 100 MG CAPSULE PO SCH ×3 (09:21→20:39)
[2020-08-08] MEDS: INSULIN ASPART PROTAMINE/ASPART 70/30 100 UNIT/ML SUBCUT SCH ×2 (09:21→16:35)
[2020-08-08] MEDS: metOLazone 5 MG TABLET PO SCH (09:22)
[2020-08-08] MEDS: POTASSIUM CHLORIDE 20 MEQ TABLET PO SCH ×3 (09:22→20:39)
[2020-08-08] MEDS: FERROUS SULFATE 325 MG TABLET PO SCH (09:22)
[2020-08-08] MEDS: METOPROLOL SUCCINATE XL 25 MG TABLET PO SCH (09:22)
[2020-08-08] MEDS: SPIRONOLACTONE 50 MG TABLET PO SCH ×2 (09:22→20:40)
[2020-08-08] MEDS: RIFAXIMIN 550 MG TABLET PO SCH ×2 (09:22→20:40)
[2020-08-08] MEDS: PANTOPRAZOLE 40 MG TABLET PO SCH (09:22)
[2020-08-08] MEDS: LACTULOSE 20 GM/30 ML UDCUP PO SCH ×2 (09:32→20:40)
[2020-08-08] MEDS: ALBUMIN 25% 25 GM in PREMIX 1 EACH IV SCH (20:38)
[2020-08-08] MEDS: GABAPENTIN 400 MG CAPSULE PO SCH (20:40)
[2020-08-08] MEDS: MONTELUKAST 10 MG TABLET PO SCH (20:40)
[2020-08-08] MEDS: CYCLOBENZAPRINE 10 MG TABLET PO PRN (21:00)
[2020-08-08] MEDS: AZITHROMYCIN INJ 500 MG in SODIUM CHLORIDE 0.9% 250 ML IV SCH (21:48)
[2020-08-09] MEDS: ALBUTEROL/IPRATROPIUM 3 ML NEB RESP TX SCH ×7 (00:30→23:52)
[2020-08-09] MEDS: PIPERACILLIN/TAZOBACTAM 3,375 MG in SODIUM CHLORIDE 0.9% 100 ML IV SCH ×3 (01:20→15:58)
[2020-08-09] MEDS: LEVOTHYROXINE 150 MCG TABLET PO SCH (05:56)
[2020-08-09 06:19] LABS: Basophils # 0.1 10*3/uL (0.0-0.2); Basophils % 1.2 % (0.0-0.8); Eosinophils # 0.3 10*3/uL (0.0-0.87); Eosinophils % 5.6 % (0.00-10.9); Hematocrit 33.2 VOL% (35.7-47.0); Immature Granulocytes % 0.6 %; Immature Granulocytes Absolute 0.03 #; Lymphocytes # 1.1 10*3/uL (1.4-4.0); Lymphocytes % 22.4 % (21.3-54.2); Mean Corpuscular HGB Conc 33.1 GM/DL (32-36); Mean Corpuscular Volume 87.1 FL (87-102); Mean Platelet Volume 8.4 FL (9.6-12.0); Monocytes % 12.6 % (1.7-12.7); Neutrophils % 57.6 % (38.7-73.9); Red Blood Count 3.81 MC/CUMM (3.8-5.5); Red Cell Distribution Width 17.1 % (9.3-17.3); White Blood Count 4.9 T/CUMM (4-12)
[2020-08-09 06:24] LABS: Platelet Count 89 T/CUMM (130-400)
[2020-08-09 06:45] LABS: Calcium 8.3 MG/DL (8.5-10.1); Osmolality,Calculated 261.8 MOS/KG (273-304)
[2020-08-09 06:47] LABS: Hypochromasia 1+; Microcytosis 1+; Platelet Estimate Decreased
[2020-08-09] MEDS: ALBUMIN 25% 25 GM in PREMIX 1 EACH IV SCH ×2 (08:50→21:19)
[2020-08-09] MEDS: INSULIN REGULAR 100 UNIT/ML SUBCUT SCH ×4 (08:51→21:26)
[2020-08-09] MEDS: POTASSIUM CHLORIDE 20 MEQ TABLET PO SCH ×4 (09:55→20:04)
[2020-08-09] MEDS: SPIRONOLACTONE 50 MG TABLET PO SCH ×2 (09:55→19:58)
[2020-08-09] MEDS: METOPROLOL SUCCINATE XL 25 MG TABLET PO SCH (09:55)
[2020-08-09] MEDS: LACTULOSE 20 GM/30 ML UDCUP PO SCH ×2 (09:55→20:05)
[2020-08-09] MEDS: RIFAXIMIN 550 MG TABLET PO SCH ×2 (09:55→20:05)
[2020-08-09] MEDS: INSULIN ASPART PROTAMINE/ASPART 70/30 100 UNIT/ML SUBCUT SCH ×2 (09:55→17:23)
[2020-08-09] MEDS: PANTOPRAZOLE 40 MG TABLET PO SCH (09:55)
[2020-08-09] MEDS: BENZONATATE 100 MG CAPSULE PO SCH ×3 (09:56→20:04)
[2020-08-09] MEDS: FERROUS SULFATE 325 MG TABLET PO SCH (09:56)
[2020-08-09] MEDS: metOLazone 5 MG TABLET PO SCH (09:56)
[2020-08-09] MEDS: BUMETANIDE 1 MG/4 ML VIAL IV SCH (09:56)
[2020-08-09] MEDS: SIMETHICONE CHEW 125 MG TABLET PO SCH ×2 (15:28→20:04)
[2020-08-09] MEDS: ONDANSETRON 4 MG/2 ML VIAL IV PRN ×2 (15:59→20:24)
[2020-08-09] MEDS: ENOXAPARIN 40 MG/0.4 ML SYRINGE SUBCUT SCH (20:04)
[2020-08-09] MEDS: GABAPENTIN 400 MG CAPSULE PO SCH (20:04)
[2020-08-09] MEDS: MONTELUKAST 10 MG TABLET PO SCH (20:04)
[2020-08-09] MEDS: AZITHROMYCIN INJ 500 MG in SODIUM CHLORIDE 0.9% 250 ML IV SCH (21:20)
[2020-08-10] MEDS: PIPERACILLIN/TAZOBACTAM 3,375 MG in SODIUM CHLORIDE 0.9% 100 ML IV SCH ×3 (01:02→17:34)
[2020-08-10] MEDS: ALBUTEROL/IPRATROPIUM 3 ML NEB RESP TX SCH ×5 (03:40→19:37)
[2020-08-10 05:02] LABS: Basophils # 0.1 10*3/uL (0.0-0.2); Eosinophils # 0.3 10*3/uL (0.0-0.87); Eosinophils % 4.8 % (0.00-10.9); Hematocrit 31.6 VOL% (35.7-47.0); Hemoglobin 10.7 GM/DL (12.0-16.0); Immature Granulocytes % 0.5 %; Immature Granulocytes Absolute 0.03 #; Lymphocytes % 16.2 % (21.3-54.2); Mean Corpuscular HGB Conc 33.9 GM/DL (32-36); Mean Corpuscular Volume 85.6 FL (87-102); Mean Platelet Volume 8.7 FL (9.6-12.0); Monocytes % 11.7 % (1.7-12.7); Neutrophils % 65.8 % (38.7-73.9); Platelet Count 88 T/CUMM (130-400); Red Blood Count 3.69 MC/CUMM (3.8-5.5); White Blood Count 6.3 T/CUMM (4-12)
[2020-08-10 05:16] LABS: Calcium 8.8 MG/DL (8.5-10.1); Osmolality,Calculated 261.8 MOS/KG (273-304)
[2020-08-10 05:26] LABS: Platelet Estimate Decreased
[2020-08-10] MEDS: LEVOTHYROXINE 150 MCG TABLET PO SCH (05:36)
[2020-08-10] MEDS: INSULIN REGULAR 100 UNIT/ML SUBCUT SCH ×4 (07:30→22:02)
[2020-08-10] MEDS: ALBUMIN 25% 25 GM in PREMIX 1 EACH IV SCH (10:03)
[2020-08-10] MEDS: BENZONATATE 100 MG CAPSULE PO SCH ×3 (10:04→22:01)
[2020-08-10] MEDS: SPIRONOLACTONE 50 MG TABLET PO SCH ×2 (10:05→22:00)
[2020-08-10] MEDS: METOPROLOL SUCCINATE XL 25 MG TABLET PO SCH (10:05)
[2020-08-10] MEDS: RIFAXIMIN 550 MG TABLET PO SCH ×2 (10:05→22:00)
[2020-08-10] MEDS: POTASSIUM CHLORIDE 20 MEQ TABLET PO SCH ×3 (10:05→22:01)
[2020-08-10] MEDS: FERROUS SULFATE 325 MG TABLET PO SCH (10:06)
[2020-08-10] MEDS: PANTOPRAZOLE 40 MG TABLET PO SCH (10:06)
[2020-08-10] MEDS: SIMETHICONE CHEW 125 MG TABLET PO SCH ×3 (10:17→22:01)
[2020-08-10] MEDS: metOLazone 5 MG TABLET PO SCH (10:17)
[2020-08-10] MEDS: LACTULOSE 20 GM/30 ML UDCUP PO SCH ×2 (10:18→21:59)
[2020-08-10] MEDS: INSULIN ASPART PROTAMINE/ASPART 70/30 100 UNIT/ML SUBCUT SCH ×2 (10:20→17:27)
[2020-08-10] MEDS: BUMETANIDE 1 MG/4 ML VIAL IV SCH (11:09)
[2020-08-10] MEDS: AZITHROMYCIN INJ 500 MG in SODIUM CHLORIDE 0.9% 250 ML IV SCH (21:59)
[2020-08-10] MEDS: GABAPENTIN 400 MG CAPSULE PO SCH (22:00)
[2020-08-10] MEDS: ENOXAPARIN 40 MG/0.4 ML SYRINGE SUBCUT SCH (22:00)
[2020-08-10] MEDS: MONTELUKAST 10 MG TABLET PO SCH (22:00)
[2020-08-10] MEDS: CYCLOBENZAPRINE 10 MG TABLET PO PRN (22:05)
[2020-08-11] MEDS: PIPERACILLIN/TAZOBACTAM 3,375 MG in SODIUM CHLORIDE 0.9% 100 ML IV SCH ×3 (00:33→15:46)
[2020-08-11] MEDS: ALBUTEROL/IPRATROPIUM 3 ML NEB RESP TX SCH ×7 (00:50→23:00)
[2020-08-11] MEDS: LEVOTHYROXINE 150 MCG TABLET PO SCH (06:35)
[2020-08-11] MEDS: INSULIN REGULAR 100 UNIT/ML SUBCUT SCH ×4 (08:16→22:41)
[2020-08-11] MEDS: INSULIN ASPART PROTAMINE/ASPART 70/30 100 UNIT/ML SUBCUT SCH ×2 (09:36→16:43)
[2020-08-11] MEDS: LACTULOSE 20 GM/30 ML UDCUP PO SCH ×2 (09:38→22:38)
[2020-08-11] MEDS: SIMETHICONE CHEW 125 MG TABLET PO SCH ×3 (09:40→22:41)
[2020-08-11] MEDS: metOLazone 5 MG TABLET PO SCH (09:41)
[2020-08-11] MEDS: BENZONATATE 100 MG CAPSULE PO SCH ×3 (09:42→22:41)
[2020-08-11] MEDS: FERROUS SULFATE 325 MG TABLET PO SCH (09:42)
[2020-08-11] MEDS: PANTOPRAZOLE 40 MG TABLET PO SCH (09:42)
[2020-08-11] MEDS: RIFAXIMIN 550 MG TABLET PO SCH ×2 (09:43→22:43)
[2020-08-11] MEDS: POTASSIUM CHLORIDE 20 MEQ TABLET PO SCH ×3 (09:45→22:40)
[2020-08-11] MEDS: SPIRONOLACTONE 50 MG TABLET PO SCH ×2 (09:45→22:39)
[2020-08-11] MEDS: METOPROLOL SUCCINATE XL 25 MG TABLET PO SCH (09:45)
[2020-08-11] MEDS: BUMETANIDE 1 MG/4 ML VIAL IV SCH (09:48)
[2020-08-11] MEDS: ENOXAPARIN 40 MG/0.4 ML SYRINGE SUBCUT SCH (22:38)
[2020-08-11] MEDS: MONTELUKAST 10 MG TABLET PO SCH (22:40)
[2020-08-11] MEDS: CYCLOBENZAPRINE 10 MG TABLET PO PRN (22:40)
[2020-08-11] MEDS: GABAPENTIN 400 MG CAPSULE PO SCH (22:40)
[2020-08-11] MEDS: AZITHROMYCIN INJ 500 MG in SODIUM CHLORIDE 0.9% 250 ML IV SCH (22:43)
[2020-08-12] MEDS: PIPERACILLIN/TAZOBACTAM 3,375 MG in SODIUM CHLORIDE 0.9% 100 ML IV SCH ×3 (01:54→17:05)
[2020-08-12] MEDS: ALBUTEROL/IPRATROPIUM 3 ML NEB RESP TX SCH ×5 (03:15→19:55)
[2020-08-12] MEDS: LEVOTHYROXINE 150 MCG TABLET PO SCH (05:55)
[2020-08-12 06:21] LABS: Basophils # 0.1 10*3/uL (0.0-0.2); Eosinophils # 0.5 10*3/uL (0.0-0.87); Eosinophils % 7.8 % (0.00-10.9); Hematocrit 30.9 VOL% (35.7-47.0); Hemoglobin 10.7 GM/DL (12.0-16.0); Immature Granulocytes % 0.8 %; Immature Granulocytes Absolute 0.05 #; Lymphocytes # 1.3 10*3/uL (1.4-4.0); Lymphocytes % 22.7 % (21.3-54.2); Mean Corpuscular HGB Conc 34.6 GM/DL (32-36); Mean Corpuscular Volume 84.9 FL (87-102); Mean Platelet Volume 8.6 FL (9.6-12.0); Monocytes % 12.5 % (1.7-12.7); Neutrophils % 55.2 % (38.7-73.9); Platelet Count 87 T/CUMM (130-400); Red Blood Count 3.64 MC/CUMM (3.8-5.5); Red Cell Distribution Width 16.7 % (9.3-17.3); White Blood Count 5.9 T/CUMM (4-12)
[2020-08-12 06:41] LABS: Calcium 8.4 MG/DL (8.5-10.1); Osmolality,Calculated 263.8 MOS/KG (273-304)
[2020-08-12] MEDS ORDERED: MAGNESIUM SULF RIDER 4 GM in PREMIX 1 EACH IV PRN (07:45)
[2020-08-12] MEDS ORDERED: MAGNESIUM SULF RIDER 2 GM in PREMIX 1 EACH IV PRN (07:45)
[2020-08-12] MEDS: BUMETANIDE 1 MG/4 ML VIAL IV SCH (09:50)
[2020-08-12] MEDS: BENZONATATE 100 MG CAPSULE PO SCH ×3 (09:50→21:08)
[2020-08-12] MEDS: PANTOPRAZOLE 40 MG TABLET PO SCH (09:50)
[2020-08-12] MEDS: METOPROLOL SUCCINATE XL 25 MG TABLET PO SCH (09:50)
[2020-08-12] MEDS: POTASSIUM CHLORIDE 20 MEQ TABLET PO SCH ×3 (09:50→21:09)
[2020-08-12] MEDS: RIFAXIMIN 550 MG TABLET PO SCH ×2 (09:50→21:08)
[2020-08-12] MEDS: FERROUS SULFATE 325 MG TABLET PO SCH (09:50)
[2020-08-12] MEDS: SPIRONOLACTONE 50 MG TABLET PO SCH ×2 (09:50→21:08)
[2020-08-12] MEDS: LACTULOSE 20 GM/30 ML UDCUP PO SCH ×2 (09:50→21:07)
[2020-08-12] MEDS: SIMETHICONE CHEW 125 MG TABLET PO SCH ×3 (09:50→21:07)
[2020-08-12] MEDS: INSULIN REGULAR 100 UNIT/ML SUBCUT SCH ×4 (11:17→21:09)
[2020-08-12] MEDS: INSULIN ASPART PROTAMINE/ASPART 70/30 100 UNIT/ML SUBCUT SCH ×2 (12:25→16:35)
[2020-08-12] MEDS: ENOXAPARIN 40 MG/0.4 ML SYRINGE SUBCUT SCH (21:07)
[2020-08-12] MEDS: MONTELUKAST 10 MG TABLET PO SCH (21:08)
[2020-08-12] MEDS: CYCLOBENZAPRINE 10 MG TABLET PO PRN (21:08)
[2020-08-12] MEDS: GABAPENTIN 400 MG CAPSULE PO SCH (21:08)
[2020-08-13] MEDS: ALBUTEROL/IPRATROPIUM 3 ML NEB RESP TX SCH ×4 (00:42→11:42)
[2020-08-13] MEDS: PIPERACILLIN/TAZOBACTAM 3,375 MG in SODIUM CHLORIDE 0.9% 100 ML IV SCH ×2 (01:47→13:03)
[2020-08-13] MEDS: LEVOTHYROXINE 150 MCG TABLET PO SCH (05:55)
[2020-08-13 07:18] LABS: Calcium 8.8 MG/DL (8.5-10.1); Osmolality,Calculated 259.9 MOS/KG (273-304)
[2020-08-13] MEDS ORDERED: MAGNESIUM SULF RIDER 4 GM in PREMIX 1 EACH IV ONE (07:44)
[2020-08-13 07:48] LABS: Basophils # 0.1 10*3/uL (0.0-0.2); Basophils % 0.8 % (0.0-0.8); Eosinophils # 0.5 10*3/uL (0.0-0.87); Eosinophils % 8.7 % (0.00-10.9); Hematocrit 34.6 VOL% (35.7-47.0); Hemoglobin 11.6 GM/DL (12.0-16.0); Immature Granulocytes Absolute 0.06 #; Lymphocytes # 1.2 10*3/uL (1.4-4.0); Lymphocytes % 20.5 % (21.3-54.2); Mean Corpuscular HGB Conc 33.5 GM/DL (32-36); Mean Corpuscular Volume 86.7 FL (87-102); Mean Platelet Volume 9.1 FL (9.6-12.0); Monocytes % 11.4 % (1.7-12.7); Neutrophils % 57.6 % (38.7-73.9); Platelet Count 86 T/CUMM (130-400); Red Blood Count 3.99 MC/CUMM (3.8-5.5); Red Cell Distribution Width 17.2 % (9.3-17.3)
[2020-08-13 08:15] LABS: Anisocytosis Slight; Platelet Estimate Decreased
[2020-08-13 08:16] LABS: Hypochromasia Slight
[2020-08-13] MEDS: POTASSIUM CHLORIDE 20 MEQ TABLET PO SCH (08:40)
[2020-08-13] MEDS: PANTOPRAZOLE 40 MG TABLET PO SCH (08:40)
[2020-08-13] MEDS: RIFAXIMIN 550 MG TABLET PO SCH (08:40)
[2020-08-13] MEDS: SIMETHICONE CHEW 125 MG TABLET PO SCH (08:40)
[2020-08-13] MEDS: FERROUS SULFATE 325 MG TABLET PO SCH (08:40)
[2020-08-13] MEDS: METOPROLOL SUCCINATE XL 25 MG TABLET PO SCH (08:40)
[2020-08-13] MEDS: SPIRONOLACTONE 50 MG TABLET PO SCH (08:40)
[2020-08-13] MEDS: INSULIN REGULAR 100 UNIT/ML SUBCUT SCH ×2 (08:41→11:36)
[2020-08-13] MEDS: BENZONATATE 100 MG CAPSULE PO SCH (08:41)
[2020-08-13] MEDS: INSULIN ASPART PROTAMINE/ASPART 70/30 100 UNIT/ML SUBCUT SCH (08:41)
[2020-08-13] MEDS ORDERED: guaiFENesin/CODEINE 5 ML LIQUID PO PRN (08:54)
[2020-08-13] MEDS: BUMETANIDE 1 MG/4 ML VIAL IV SCH (09:10)
[2020-08-13] MEDS: LACTULOSE 20 GM/30 ML UDCUP PO SCH (09:14)
[2020-08-13 11:41] VITALS: BP 95/53
== END 2020-08-13 15:00 | disposition home health service (06) | DRG 193 ==
LOC: SUATTDRO 17:14 → N.3E 17:14
PROVIDERS: ADMIT Internal Medicine; ATTEND Family Medicine